=== PATIENT | female | born 1995 | race Caucasian/White ===

== ENCOUNTER 2017-03-15 21:38 | Emergency (ER) | payer SELFPAY ==
[2017-03-15 21:48] VITALS: BP 145/84; PULSE 80; RESP 18; TEMP 98.4; O2SAT 100
--- NOTE | 2017-03-15 22:50 | ED PDOC ---
HPI: Back Time Seen by Provider: 03/15/17 21:51 Chief Complaint (Nursing): Back Pain Chief Complaint (Provider): Left rib pain x 20 hours History Per: Patient History/Exam Limitations: no limitations Onset/Duration Of Symptoms: Hrs Current Symptoms Are (Timing): Still Present Quality Of Discomfort: Sharp (Left sied ) Severity: Moderate Pain Scale Rating Of: 5 Previous Symptoms: None Associated Symptoms: None Exacerbating Factor(s): Movement, Other (Deep breathing ) Additional Complaint(s): Pt states she is not taking OCP. Pt without history or family history of clotting disorders/rheumatoid disorders. Pt denies fever/chills. Pt denies calf pain. Recent trauma. Denies smoking. Past Medical History Reviewed: Historical Data, Nursing Documentation, Vital Signs Vital Signs: Last Vital Signs Temp 98.4 F 03/15/17 21:45 Pulse 80 03/15/17 21:45 Resp 18 03/15/17 21:45 BP 145/84 03/15/17 21:45 Pulse Ox 100 03/15/17 21:45 - Medical History PMH: No Chronic Diseases - Surgical History Surgical History: No Surg Hx - Family History Family History: States: No Known Family Hx - Living Arrangements Living Arrangements: With Family - Social History Current smoker - smoking cessation education provided: No Alcohol: None Drugs: Denies - Home Medications Home Medications: Ambulatory Orders Medication Instructions Recorded Ibuprofen [Motrin Tab] 800 mg PO Q6H PRN #20 tab 03/15/17 - Allergies Allergies/Adverse Reactions: Allergies Allergy/AdvReac Type Severity Reaction Status Date / Time peanut Allergy RASH Verified 03/15/17 21:45 Review of Systems ROS Statement: Except As Marked, All Systems Reviewed And Found Negative Respiratory: Positive for: Pleuritic Pain (Left ribs ). Negative for: Cough Physical Exam - Reviewed Nursing Documentation Reviewed: Yes Vital Signs Reviewed: Yes - Physical Exam Appears: Positive for: Well, Non-toxic, No Acute Distress Head Exam: Positive for: ATRAUMATIC, NORMAL INSPECTION, NORMOCEPHALIC Skin: Positive for: Normal Color, Warm, DRY Eye Exam: Positive for: Normal appearance ENT: Positive for: Normal ENT Inspection Neck: Positive for: Normal, Painless ROM Cardiovascular/Chest: Positive for: Regular Rate, Rhythm Respiratory: Positive for: Normal Breath Sounds, Other (Tenderness of the right ribs to palpation ). Negative for: Accessory Muscle Use, Respiratory Distress Gastrointestinal/Abdominal: Positive for: Normal Exam, Bowel Sounds, Soft. Negative for: Tenderness Back: Positive for: Normal Inspection Extremity: Positive for: Normal ROM Neurologic/Psych: Positive for: Alert, Oriented - ECG O2 Sat by Pulse Oximetry: 100 Medical Decision Making Medical Decision Making: CXR - Normal Urine without blood. Disposition - Clinical Impression Clinical Impression: Flank pain, Costochondritis - Patient ED Disposition Is Patient to be Admitted: No Counseled Patient/Family Regarding: Diagnosis, Need For Followup, Rx Given - Disposition [facility] [Outside] Disposition: Routine/Home Disposition Time: 23:06 Condition: GOOD Prescriptions: Ibuprofen [Motrin Tab] 800 mg PO Q6H PRN #20 tab PRN Reason: Pain Instructions: Costochondritis (ED) Forms: [facility] ED School/Work Excuse
--- NOTE | 2017-03-16 10:14 | RAD ---
HISTORY: left flank pain COMPARISON: No prior. TECHNIQUE: Chest PA and lateral FINDINGS: LUNGS: No active pulmonary disease. PLEURA: No significant pleural effusion identified. No pneumothorax apparent. CARDIOVASCULAR: Normal. OSSEOUS STRUCTURES: No significant abnormalities. VISUALIZED UPPER ABDOMEN: Normal. OTHER FINDINGS: None. IMPRESSION: No active disease.
== END 2017-03-15 23:14 | disposition home or self-care (01) ==
LOC: H.ER 21:38
DX: M94.0 Chondrocostal junction syndrome [Tietze] (principal)

== ENCOUNTER 2018-03-21 19:04 | Emergency (ER) | payer OTHER ==
[2018-03-21 19:16] VITALS: TEMP 98.1; O2SAT 100
--- NOTE | 2018-03-21 19:57 | ED PDOC ---
HPI: Chest Pain Time Seen by Provider: 03/21/18 19:21 Chief Complaint (Nursing): Chest Pain Chief Complaint (Provider): Left sided chest pain History Per: Patient History/Exam Limitations: no limitations Onset/Duration Of Symptoms: Days (x1 month), Intermittent Episodes Quality: Other (squeezing) Additional Complaint(s): Mony Grimaldo is a 22 year old female, with no significant past medical history, who presents to the emergency department for evaluation of left sided chest pain for the last month. Patient reports intermittent episodes that last x5 to x10 min and resolve spontaneously. She describes the sensation as squeezing and during the episode she feels winded but returns to her baseline shortly afterwards. She notes last episode was at 17:00 today and doesn't get them daily. She denies taking any medication for episodes. She denies any fever, chills, palpitations, cough, prolonged immobility, or use of control. No further medical complaint. LMP 02/21/18 PMD: Blayne Luz Past Medical History Reviewed: Historical Data, Nursing Documentation, Vital Signs Vital Signs: Last Vital Signs Temp 98.1 F 03/21/18 19:13 Pulse 84 03/21/18 20:06 Resp 16 03/21/18 19:13 BP 126/79 03/21/18 19:13 Pulse Ox 100 03/21/18 20:06 - Medical History PMH: No Chronic Diseases - Surgical History Surgical History: No Surg Hx - Family History Family History: States: Stroke (Maternal grandmother ) - Social History Current smoker - smoking cessation education provided: No Alcohol: Social Drugs: Cannabis (occasionally) - Home Medications Home Medications: Ambulatory Orders Medication Instructions Recorded Ibuprofen [Motrin Tab] 800 mg PO Q6H PRN #20 tab 03/15/17 Naproxen 500 mg PO BID #20 tab 03/21/18 - Allergies Allergies/Adverse Reactions: Allergies Allergy/AdvReac Type Severity Reaction Status Date / Time peanut Allergy RASH Verified 03/15/17 21:45 Review of Systems ROS Statement: Except As Marked, All Systems Reviewed And Found Negative Constitutional: Negative for: Fever, Chills Cardiovascular: Positive for: Chest Pain (episodes of left sided chest pain). Negative for: Palpitations Respiratory: Negative for: Cough Physical Exam - Reviewed Nursing Documentation Reviewed: Yes Vital Signs Reviewed: Yes - Physical Exam Comments: GENERAL APPEARANCE: Patient is awake, alert, oriented x 3, in no acute distress. Resting comfortably SKIN: Warm, dry; (-) cyanosis. EYES: (-) conjunctival pallor. ENMT: Mucous membranes moist. NECK: (-) tenderness, (-) stiffness, (-) lymphadenopathy, (-) JVD. CHEST AND RESPIRATORY: (-) rash, (+) reproducible anterior sternal chest wall tenderness, no overlying erythema or skin changes. Lungs: (-) rales, (-) rhonchi, (-) wheezes, (-) rub; breath sounds equal bilaterally. HEART AND CARDIOVASCULAR: (-) irregularity; (-) murmur, (-) gallop, (-) rub. ABDOMEN AND GI: Soft; (-) distention, (-) tenderness, (-) palpable pulsatile mass. EXTREMITIES: (-) deformity; (-) edema, (-) calf tenderness. (+) distal pulses. NEURO AND PSYCH: Mental status as above. Cranial nerves grossly intact; strength symmetric. - Laboratory Results Urine POC: Negative - ECG Interpretation Of ECG: NSR, QTc 399. No ST elevations, no ectopy. Rate: 84 O2 Sat by Pulse Oximetry: 100 Medical Decision Making Medical Decision Making: Time: 19:21 Initial Impression: chest wall pain, consider costochondritis Initial Plan: -- test --Chest two views (PA/LAT) [RAD] --Toradol 30 mg IM --Reevaluation Urine Preg; Negative 2019 CXR reviewed: (-) infiltrate (-) pneumothorax as read by Gilda BARR Patient notified a Radiologist will review the ED reading if any change in treatment is needed we will contact her. On re-evaluation, patient offers no complaints. Denies chest pain, SOB, dyspnea. On exam, patient remains AAOx3, in no acute distress. Lungs clear to auscultation, cardiac RRR, abdomen soft, non-tender, repeat neuro exam shows no focal findings. Vitals stable. Lab/Diagnostic results d/w the patient in great detail. Diagnosis of chest wall pain, likely costochondritis d/w the patient. Based on history, exam and diagnostic results, plan will be for outpatient follow up. Patient instructed to follow-up with pmd / referral provided / the clinic in 1- 2 days without fail. Advised to take medication as prescribed. Return to the emergency room at any time for any new or worsening symptoms. Patient states she fully agrees with and understands discharge instructions. States that she agrees with the plan and disposition. Verbalized and repeated discharge instructions and plan. I have given the patient opportunity to ask any additional questions. ----- Scribe Attestation: Documented by Rodolfo Mishra, acting as a scribe for Roxanne Vo PA-C. Provider Scribe Attestation: All medical record entries made by the Scribe were at my direction and personally dictated by me. I have reviewed the chart and agree that the record accurately reflects my personal performance of the history, physical exam, medical decision making, and the department course for this patient. I have also personally directed, reviewed, and agree with the discharge instructions and disposition. Disposition - Clinical Impression Clinical Impression: Chest wall pain, Costochondritis - Patient ED Disposition Is Patient to be Admitted: No Counseled Patient/Family Regarding: Studies Performed, Diagnosis, Need For Followup, Rx Given - Disposition Referrals: Blayne Luz MD [Staff Provider] - Disposition: Routine/Home Disposition Time: 20:32 Condition: STABLE Additional Instructions: FOLLOW UP WITH PMD IN 1-2 DAYS WITHOUT FAIL. RETURN TO ED WITH ANY NEW OR WORSENING SYMPTOMS. TAKE MEDICATION PRESCRIBED. The emergency medical care you received today was directed at your acute symptoms. If you were prescribed any medication, please fill it and take as directed. It may take several days for your symptoms to resolve. Return to the Emergency Department if your symptoms worsen, do not improve, or if you have any other problems. Please contact your doctor in 2 days for re-evaluation and follow up / or call one of the physicians/clinics you have been referred to that are listed on the Patient Visit Information form that is included in your discharge packet. Bring any paperwork you were given at discharge with you along with any medications you are taking to your follow up visit. Our treatment cannot replace ongoing medical care by a primary care provider (PCP) outside of the emergency department. Prescriptions: Naproxen 500 mg PO BID #20 tab Instructions: Costochondritis, Chest Pain That Is Not Caused by the Heart (DC) Forms: [employer] (Greek) Print Language: VIET[place]ESE - POA Present On Arrival: None
[2018-03-21 22:59] VITALS: BP 136/78; PULSE 70; RESP 14
--- NOTE | 2018-03-22 08:47 | RAD ---
HISTORY: COMPARISON: 03/15/2017. TECHNIQUE: Chest PA and lateral FINDINGS: LINES AND TUBES: None. LUNG AND PLEURA: The lungs are well inflated and clear. No pleural effusion or pneumothorax. HEART AND MEDIASTINUM: The heart is not enlarged. The hilar and mediastinal contours are within normal limits. SKELETAL STRUCTURES: The bony structures are within normal limits for the patient's age. VISUALIZED UPPER ABDOMEN: Normal. OTHER FINDINGS: None. IMPRESSION: No active pulmonary disease.
== END 2018-03-21 21:40 | disposition home or self-care (01) ==
LOC: H.ER 19:04
DX: R07.89 Other chest pain (principal)
CPT/HCPCS: 71046; 81025; 96372; 99284; J1885